=== PATIENT | male | born 1975 | race Caucasian/White ===

== ENCOUNTER 2021-03-06 07:26 | Outpatient (CLI) | payer OTHER | END 2021-03-06 07:49 | disposition home or self-care (01) | LOC: SONOGRAMA 07:26 → MAMO-SONO 09:15 | PROVIDERS: ATTEND Podiatrist | DX: M72.2 Plantar fascial fibromatosis (principal) ==

== ENCOUNTER 2022-05-01 07:20 | Outpatient (CLI) | payer OTHER | END 2022-05-01 07:25 | disposition home or self-care (01) | LOC: LAB 07:20 | PROVIDERS: ATTEND Internal Medicine Gastroenterology | DX: K62.5 Hemorrhage of anus and rectum (principal) ==

== ENCOUNTER 2023-03-25 06:49 | Outpatient (CLI) | payer OTHER | END 2023-03-25 06:50 | disposition home or self-care (01) | LOC: LAB 06:49 | DX: N40.0 Benign prostatic hyperplasia without lower urinary tract symptoms (principal); Z12.11 Encounter for screening for malignant neoplasm of colon; E78.49 Other hyperlipidemia; I11.9 Hypertensive heart disease without heart failure ==